=== PATIENT | female | born 1980 | race Caucasian/White ===

== ENCOUNTER 2019-10-15 12:50 | Emergency (ER) | payer OTHER, SELFPAY ==
[2019-10-15 13:10] VITALS: BP 124/74; PULSE 93; RESP 16; TEMP 36.7; O2SAT 99
--- NOTE | 2019-10-15 13:27 | ED.SKABFB ---
HPI - Skin/Abscess/Foreign Bdy General Chief complaint: Skin/Abscess/Foreign Body Stated complaint: possible insect bite (R) leg Time Seen by Provider: 10/15/19 13:20 Source: patient Mode of arrival: ambulatory Limitations: no limitations History of Present Illness HPI narrative: Tami Jackman is a 39 yo female with no PMH who comes to express care with bug bite of right anterior upper thigh states it happened 2 days ago and had been swollen and had been pussy but currently looks erythematous flat and about 3 x 3. Denies itching although has been using bite begone which is generic diphenhydramine and Neosporin Related Data Home Medications Medication Instructions Recorded Confirmed escitalopram oxalate [Lexapro] 10 mg PO DAILY 10/15/19 10/15/19 Allergies Allergy/AdvReac Type Severity Reaction Status Date / Time No Known Allergies Allergy Verified 10/15/19 13:18 Review of Systems Review of Systems: Narrative: CONSTITUTIONAL: Denies fever, chills, sweats. EYES: Denies visual changes, redness, discharge. ENT: Denies rhinorrhea, congestion, sore throat, otalgia. CARDIOVASCULAR: Denies chest pain, palpitations, edema. RESPIRATORY: Denies dyspnea, wheezing, cough GASTROINTESTINAL: Denies abdominal pain, nausea, vomiting, diarrhea. GENITOURINARY: Denies dysuria, hematuria, abnormal discharge SKIN: Denies rash or itching. 3 x 3 erythematous insect bite right upper anterior thigh NEUROLOGIC: Denies numbness, or focal weakness. PSYCHIATRIC: Denies anxiety or depression. PMFSH Past Medical History Medical History Depression Family History Family History Other No active medical problems Social History Social History Smoking status: Never smoker Alcohol intake: current Gender identity (if verbalized by the patient): Female Comments At time of signature, I agree with nursing past medical, surgical, social and family history. There is no relevant family history pertinent to the presenting complaint. Exam Narrative: Exam Narrative: GENERAL: This is a well-nourished, well-developed patient, in mild distress. HEAD: normocephalic, atraumatic. EYES: PERRL. Sclera clear/white. Vision is grossly intact. EARS: External ears normal, auditory canals clear and without drainage, TMs normal without perforation. Hearing grossly intact. NOSE: External nose normal without nasal discharge, nares without redness, no rhinorrhea. THROAT: Mucous membranes moist, posterior pharynx NECK: Neck supple, non-tender CARDIOVASCULAR: Regular rate and rhythm without murmurs, gallops, or rubs. RESPIRATORY: Clear to auscultation. Breath sounds equal bilaterally. No wheezes, rales, or rhonchi. GASTROINTESTINAL: Abdomen soft, non-tender, SKIN: warm, intact with no suspicious lesions or rash, good texture and turgor. Small 3 x 3 area of erythema with no induration no obvious discharge or pustule, not warm to touch NEURO: awake, alert, and oriented to person, place and time. There were no obvious focal neurologic abnormalities. Steady gait EXTREMITIES: Normal range of motion. BACK: Nontender without deformity Course Course Emergency Course: Discussed treatment with the patient and will give Bactrim for possible staph infection reinforced that this possible staph is from normal brigido of skin and not because of some other method of entry. Patient did not pick on area apply warm soaks Vital Signs Vital signs: Vital Signs Temperature 98.1 F 10/15/19 13:10 Pulse Rate 93 10/15/19 13:10 Respiratory Rate 16 10/15/19 13:10 Blood Pressure 124/74 10/15/19 13:10 Pulse Oximetry 99 10/15/19 13:10 Temperature 98.1 F 10/15/19 13:10 Pulse Rate 93 10/15/19 13:10 Respiratory Rate 16 10/15/19 13:10 Blood Pressure 124/74 10/15/19 13:10 Pulse Oximetry 99
== END 2019-10-15 13:41 | disposition home or self-care (01) ==
PROVIDERS: Emergency Provider Nurse Practitioner; PCP Internal Medicine Geriatric Medicine
DX: S70.361A Insect bite (nonvenomous), right thigh, initial encounter (principal); W57.XXXA Bitten or stung by nonvenomous insect and other nonvenomous arthropods, initial encounter; F32.9 Major depressive disorder, single episode, unspecified
CPT/HCPCS: 99203; G0463